=== PATIENT | male | born 1950 | race Caucasian/White ===

== ENCOUNTER 2018-11-08 15:56 | Emergency (ER) | payer BC ==
[~2018-11-08] VITALS: Ht 172.7 cm; Wt 68.0 kg
[2018-11-08 16:00] VITALS: BP_SYST 136
--- NOTE | 2018-11-08 16:00 | NUR ---
Patient to ER bed 4 to gown for evaluation. Side rails up. Report given to NESHA ARZATE
--- NOTE | 2018-11-08 16:10 | NUR ---
Pt presents t ED c/o exacerbation of chronic pain.
--- NOTE | 2018-11-08 16:45 | NUR ---
ER at bedside examining patient.
[2018-11-08] MEDS ORDERED: ASPIRIN 81 MG TAB.CHEW PO ONE (17:00)
[2018-11-08] MEDS ORDERED: KETOROLAC TROMETHAMINE 30 MG VIAL IM ONE (17:15)
[2018-11-08 17:21] LABS: HEMATOCRIT 30.2 % (36-54); HEMOGLOBIN 9.5 g/dL (14.0-18.0); MEAN CORPUSCULAR HEMOGLOBIN 24 pg (27-31); PLATELET COUNT (AUTO) 191 K/uL (130-430)
--- NOTE | 2018-11-08 17:24 | NUR ---
Patient transported to radiology via WC, accompanied by rad staff.
[2018-11-08 17:28] LABS: MEAN CORPUSCULAR HGB CONC 32 % (32-36); MEAN CORPUSCULAR VOLUME 75 fL (79.0-98.0); RED BLOOD CELL COUNT(AUTO) 4.04 MIL/uL (4.2-6.2); RED CELL DISTRIBUTION WIDTH 18.7 % (9.0-15.0); WHITE BLOOD COUNT (AUTO) 4.7 K/uL (4.8-10.8)
--- NOTE | 2018-11-08 17:35 | NUR ---
Returned from radiology, back to [facility].
[2018-11-08 17:37] LABS: CREATININE 0.75 mg/dL (0.55-1.30); POTASSIUM 4.1 mmol/L (3.5-5.1)
[2018-11-08 17:42] LABS: ALBUMIN 3.2 g/dL (3.4-4.8)
--- NOTE | 2018-11-08 18:20 | NUR ---
Pt mediacted and given homeless tray.
[2018-11-08 18:53] LABS: BAND % (MANUAL) 4 % (0-6); BASOPHILS % (MANUAL) 0 % (0-2); EOSINOPHILS % (MANUAL) 2 % (0-7); LYMPHOCYTES % (MANUAL) 53 % (20-46); MONOCYTES % (MANUAL) 9 % (0-11)
--- NOTE | 2018-11-08 19:33 | NUR ---
Pt has been provided a homeless discharge packet and given discharge teaching. Pt is requesting transportation since he has no means of transportation. Transport has been called and refrigeration houseman has approved the expense for cab
--- NOTE | 2018-11-08 19:35 | NUR ---
Patient given written and verbal discharge instructions and verbalizes understanding. ER MD discussed with patient the results and treatment provided. Patient in stable condition. ID arm band removed. Rx of Flexeril and Naprosyn given. Patient educated on pain management and to follow up with PMD. Pain Scale 0/10. Opportunity for questions provided and answered. Medication side effect fact sheet provided.
[2018-11-08 19:36] VITALS: BP_SYST 138
--- NOTE | 2018-11-08 19:40 | NUR ---
Pt requested to wait in the lobby for taxi.
== END 2018-11-08 19:36 | disposition home or self-care (01) ==
LOC: SED 15:56 → EDBD 15:56 → SED 19:36
DX: S22.42XA Multiple fractures of ribs, left side, initial encounter for closed fracture (principal); R74.0 Nonspecific elevation of levels of transaminase and lactic acid dehydrogenase [LDH]; F03.90 Unspecified dementia, unspecified severity, without behavioral disturbance, psychotic disturbance, mood disturbance, and anxiety; I10 Essential (primary) hypertension; X58.XXXA Exposure to other specified factors, initial encounter; Y93.89 Activity, other specified; Y92.89 Other specified places as the place of occurrence of the external cause; Y99.8 Other external cause status
CPT/HCPCS: 36415; 71045; 71100; 80053; 82550; 84484; 85007; 85027; 93005; 96372; 99284; J1885